=== PATIENT | male | born 1995 | race Caucasian/White ===

== ENCOUNTER 2023-10-24 04:37 | Emergency (ER) | payer BC ==
[~2023-10-24] VITALS: Ht 182.9 cm; Wt 77.1 kg
[2023-10-24] MEDS ORDERED: ONDANSETRON HCL/PF 4 MG/2 ML VIAL ONE (04:56)
[2023-10-24] MEDS ORDERED: KETOROLAC TROMETHAMINE INJ 30 MG/ML VIAL ONE (04:56)
[2023-10-24] MEDS: IV NS 0.9% 500 ML BAG IV ONE (05:00)
[2023-10-24] MEDS: KETOROLAC TROMETHAMINE 15 MG/ML VIAL IV ONE (05:00)
[2023-10-24] MEDS: ONDANSETRON HCL/PF 4 MG/2 ML VIAL IVP ONE (05:00)
[2023-10-24 05:20] LABS: BASOPHILS # (AUTO) 0.1 K/uL (0.0-0.2); EOSINOPHILS # (AUTO) 0.1 K/uL (0.0-0.7); EOSINOPHILS % (AUTO) 1.7 % (0.0-6.0); HEMATOCRIT 40 % (39-51); HEMOGLOBIN 14.2 g/dL (13.5-17.5); LYMPHOCYTES # (AUTO) 2.1 K/uL (0.8-4.8); LYMPHOCYTES % (AUTO) 36.5 % (20.0-44.0); MEAN CORPUSCULAR HEMOGLOBIN 32 PG (26.0-33.0); MEAN CORPUSCULAR HGB CONC 36 g/dl (31.0-36.0); MEAN CORPUSCULAR VOLUME 90 fL (80-96); MONOCYTES # (AUTO) 0.4 K/uL (0.1-1.30); MONOCYTES % (AUTO) 6.9 % (2.0-12.0); NEUTROPHILS # (AUTO) 3.1 K/uL (1.8-8.9); NEUTROPHILS % (AUTO) 53.9 % (43.0-81.0); PLATELET COUNT (AUTO) 253 K/uL (150-450); RED BLOOD CELL COUNT(AUTO) 4.38 MIL/uL (4.5-6.0); RED CELL DISTRIBUTION WIDTH 12.6 % (11.5-15.0); WHITE BLOOD COUNT (AUTO) 5.7 K/uL (4.3-11.0)
[2023-10-24 05:26] LABS: CALCIUM, SERUM 9.2 mg/dL (8.5-10.1); POTASSIUM 3.6 mmol/L (3.5-5.1)
[2023-10-24 05:31] LABS: INR 1.14 (0.91-1.10)
[2023-10-24 05:32] LABS: ALBUMIN 3.9 g/dL (3.4-5.0); BILIRUBIN,DIRECT 0.3 mg/dL (0.0-0.2); BILIRUBIN,TOTAL 1.6 mg/dL (0.2-1.0); TOTAL PROTEIN, SERUM 7.4 g/dL (6.4-8.2)
[2023-10-24 06:35] VITALS: BP 116/72; TEMP 97.8; O2SAT 99
[2023-10-24 07:49] LABS: APPEARANCE,URINE CLOUDY (CLEAR); BILIRUBIN,URINE NEGATIVE (NEGATIVE); BLOOD, URINE NEGATIVE Ery/uL (NEGATIVE); COLOR,URINE DARK YELLOW (YELLOW); KETONES,URINE NEGATIVE (NEGATIVE); LEUKOCYTE ESTERASE ,URINE NEGATIVE (NEGATIVE); NITRITE, URINE NEGATIVE (NEGATIVE); PROTEIN,URINE NEGATIVE (NEGATIVE); UGLUCOSE NEGATIVE (NEGATIVE)
== END 2023-10-24 08:32 | disposition left against medical advice (07) ==
LOC: ER 04:45
DX: M54.89 Other dorsalgia (principal); R10.84 Generalized abdominal pain; R11.2 Nausea with vomiting, unspecified; R79.89 Other specified abnormal findings of blood chemistry
CPT/HCPCS: 99285; 74176; 96374; 96361; 96375; 85025; 80048; 83690; 80076; 81003; 36415; 85730; J1885; J2405; J7030